=== PATIENT | female | born 1945 | race American Indian/Alaskan Native ===

== ENCOUNTER 2018-08-22 08:53 | Day surgery (SDC) | payer OTHER ==
[2018-08-14 10:49] VITALS: BMI 26.2
[~2018-08-22 08:53] MED LIST: Carbachol 0.01% IO ONE; Hyaluronate Sodium 10 mg/ml Ophth Syringe ONE; Lactated Ringer's 500 ML IV ONE; Phenylephrine 2.5% Opht Soln OS SCH; Tropicamide 0.5% Opht Sol OS SCH
[2018-08-22] MEDS ORDERED: Hyaluronidase Human, Recombi 150 U/ML VIAL ONE (09:07)
[2018-08-22] MEDS ORDERED: Lidocaine 2% MPF (5 ml) Inj ONE (09:07)
[2018-08-22] MEDS ORDERED: Propofol 10 mg/ml Inj (20 ML) ONE ×2 (11:07→12:58)
[2018-08-22] MEDS ORDERED: Midazolam 2 MG/2 ML VIAL ONE (11:30)
[2018-08-22] MEDS ORDERED: Propofol 10 mg/ml 1,000 MG/100 ML VIAL ONE (11:33)
[2018-08-22] MEDS ORDERED: Phenylephrine 10 mg/ml Inj ONE (12:07)
[2018-08-22] MEDS ORDERED: ePHEDrine 50 mg/ml Inj ONE (12:07)
[2018-08-22] MEDS: Phenylephrine 2.5% Opht Soln ONE ×2 (12:40→12:45)
[2018-08-22] MEDS: Cyclopentolate 1% Opth (2 ml) ONE ×2 (12:40→12:45)
[2018-08-22] MEDS: Gentamicin 80 mg/2mL Inj. ONE ×2 (12:42→12:58)
[2018-08-22] MEDS: MethylPREDNISolone 40 mg Vial ONE ×2 (12:42→12:57)
[2018-08-22] MEDS ORDERED: HYDROmorphone 0.5 mg/0.5 ml ISec IVP PRN (13:51)
[2018-08-22] MEDS ORDERED: HYDROmorphone 0.5 mg/0.5 ml ISec ONE (13:52)
[2018-08-22] MEDS ORDERED: Lactated Ringer's 500 ML IV ONE (14:55)
[2018-08-22 15:16] VITALS: TEMP 97.4
[2018-08-22 15:47] VITALS: RESP 16
[2018-08-22 16:11] VITALS: BP 147/50; PULSE 78; O2SAT 97
--- NOTE | 2018-08-23 06:39 | OP ---
PROCEDURE DATE: 08/22/2018 PREOPERATIVE DIAGNOSIS: Bullous keratopathy, left eye. POSTOPERATIVE DIAGNOSIS: Bullous keratopathy, left eye. OPERATIVE PROCEDURE: Descemet stripping endothelial keratoplasty, left eye. SURGEON: Leopoldo Aguayo MD ANESTHESIA: General anesthesia. COMPLICATIONS: None. ESTIMATED BLOOD LOSS: 0.5 mL. DESCRIPTION OF PROCEDURE: The patient was brought to the operating room and properly identified. Anesthesia staff gave IV sedation. Retrobulbar block was given to the left eye with no complication. The patient was prepped and draped in the usual sterile fashion. At this point, the patient was noted to be constantly moving, more sedation was attempted but the patient was still moving too much for surgery. Decision by Anesthesia was made to give the patient general anesthesia. Once that was complete, sitting superiorly, lid speculum was placed in the left eye. A superior limbal peritomy was created. Hemostasis was maintained with cautery. Once that was complete, a 5.5 mm scleral tunnel was made. Then, two sideport incisions were made and anterior chamber was deepened . Once this was complete, the cornea was marked by an 8.5 mm marker. The anterior chamber was then entered with the keratome using Reverse Sinskey, the endothelium was scored. The endothelium was then removed using Utrata forceps. The peripheral portion of the stroma was scraped and then three stab incisions were made directly into the cornea. Automated I and A was then used to remove the remaining Viscoat. The wound was extended to 5.5 mm. Miochol was introduced to shrink the size of the pupil. 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 Attention was then turned to the donor tissue. An 8.5 mm donor punch was then made. Healon was placed on the endothelial side. The lenticule was then folded in a taco fashion, was held with Abdullahi forceps and introduced into the anterior chamber. Once this was complete, the wound was closed with three 10-0 nylon sutures and they were buried. The lenticule was then unfolded in the eye and held in place with an air bubble. Dilating drops were then placed on the eye. Due to the patient's pupillary scarring, the pupil did not dilate very much. The bubble in the anterior chamber was then shrunk, using BSS. Once the bubble was of the appropriate size for the lenticule, subconjunctival antibiotics and steroids were given. The eye was covered by a soft patch and shield. The patient was returned to the recovery room in stable condition. Leopoldo Aguayo MD
== END 2018-08-22 16:12 | disposition home or self-care (01) ==
LOC: C.SDS 08:53
PROVIDERS: ATTEND Ophthalmology
DX: H18.12 Bullous keratopathy, left eye (principal); E11.9 Type 2 diabetes mellitus without complications; E78.00 Pure hypercholesterolemia, unspecified
CPT/HCPCS: 65756; 82948; 88305; J1170; J1580; J2250; J2370; J2704; J2920; J3010; J3470; J7120